=== PATIENT | male | born 1990 | race African-American/Black ===

== ENCOUNTER 2018-03-04 15:55 | Emergency (ER) | payer SELFPAY ==
[~2018-03-04] VITALS: Ht 182.9 cm; Wt 88.7 kg
[~2018-03-04 15:55] MED LIST: ALBU1.25 NEB; ALBU8.5H5 INH
[2018-03-04 15:57] VITALS: BP 139/86
== END 2018-03-04 16:55 | disposition home or self-care (01) ==
LOC: ED 16:15
DX: J45.909 Unspecified asthma, uncomplicated (principal); Z76.0 Encounter for issue of repeat prescription
CPT/HCPCS: 99283

== ENCOUNTER 2018-05-10 08:10 | Emergency (ER) | payer SELFPAY ==
[~2018-05-10] VITALS: Ht 185.4 cm; Wt 91.8 kg
[2018-05-10 08:18] VITALS: BP 119/77
[2018-05-10] MEDS ORDERED: ALBUTEROL/IPRATROPIUM 2.5MG/0.5MG, 3 ML NPPB ONE (09:30)
[2018-05-10] MEDS ORDERED: ALBUTEROL/IPRATROPIUM 2.5MG/0.5MG, 3 ML ONE (09:31)
== END 2018-05-10 10:44 | disposition home or self-care (01) ==
LOC: ED 10:40
DX: J45.31 Mild persistent asthma with (acute) exacerbation (principal)
CPT/HCPCS: 94640; 99283; J7620

== ENCOUNTER 2018-07-16 06:46 | Emergency (ER) | payer MEDICAID ==
[~2018-07-16] VITALS: Ht 185.4 cm; Wt 96.0 kg
[2018-07-16 06:48] VITALS: BP 131/83
== END 2018-07-16 07:33 | disposition home or self-care (01) ==
LOC: ED 07:23
DX: J45.41 Moderate persistent asthma with (acute) exacerbation (principal)
CPT/HCPCS: 99283

== ENCOUNTER 2018-08-17 18:38 | Emergency (ER) | payer MEDICAID ==
[~2018-08-17] VITALS: Ht 185.4 cm; Wt 93.4 kg
[2018-08-17 18:50] VITALS: BP 121/69
== END 2018-08-17 20:05 | disposition home or self-care (01) ==
LOC: ED 19:53
DX: J45.31 Mild persistent asthma with (acute) exacerbation (principal); Z76.0 Encounter for issue of repeat prescription
CPT/HCPCS: 71046; 99283; J7512